=== PATIENT | female | born 1965 | race Caucasian/White ===

== ENCOUNTER 2018-05-09 05:49 | Day surgery (SDC) | payer OTHER ==
[2018-05-09] MEDS ORDERED: LACTATED RINGERS 1,000 ML IV ONE ×2 (06:59→10:44)
[2018-05-09] MEDS ORDERED: SCOPOLAMINE HYDROBROMIDE 1.5MG/72HR PATCH TD ONE ×2 (06:59→08:48)
[2018-05-09] MEDS ORDERED: PREGNANCY TEST KIT 1 EACH KIT MC ONE (06:59)
[2018-05-09] MEDS ORDERED: ENOXAPARIN SODIUM 40 MG/0.4 ML DISP.SYRIN SQ ONE ×2 (07:02→08:48)
[2018-05-09] MEDS ORDERED: FAMOTIDINE 20 MG/2 ML VIAL ONE ×2 (07:03→08:48)
[2018-05-09] MEDS ORDERED: LEVALBUTEROL HCL 1.25 MG/3 ML AMPUL.NEB NEB ONE ×2 (08:26→08:48)
[2018-05-09] MEDS ORDERED: PHENYLEPHRINE HCL 10 MG/1 ML ONE (08:48)
[2018-05-09] MEDS ORDERED: SODIUM CHLORIDE IRRIG SOLUTION 3,000 ML IRRIG.SOLN IR ONE (08:48)
[2018-05-09] MEDS ORDERED: SEVOFLURANE 250 ML LIQUID IH ONE (08:48)
[2018-05-09] MEDS ORDERED: ROCURONIUM BROMIDE 10 MG/ML 5ML VIAL ONE (08:48)
[2018-05-09] MEDS ORDERED: ceFAZolin SODIUM 1 GM VIAL ONE (08:48)
[2018-05-09] MEDS ORDERED: LACTATED RINGERS 1,000 ML IV.SOLN IV ONE (08:48)
[2018-05-09] MEDS ORDERED: LIDOCAINE HCL 2% PF 100MG/5ML VIAL IJ ONE (08:48)
[2018-05-09] MEDS ORDERED: MIDAZOLAM HCL 2 MG/2 ML VIAL ONE (08:48)
[2018-05-09] MEDS ORDERED: SUGAMMADEX SODIUM 200 MG/2 ML VIAL IV ONE (08:48)
[2018-05-09] MEDS ORDERED: BUPIV. HCL 0.25% (2.5MG/ML)/EPI. (1:200,000) PF 30 ML VIAL IJ ONE (08:48)
[2018-05-09] MEDS ORDERED: ONDANSETRON HCL/PF 4 MG/ 2ML VIAL ONE (08:48)
[2018-05-09] MEDS ORDERED: LIDOCAINE HCL 1% PF 300MG/30ML VIAL ONE (08:48)
[2018-05-09] MEDS ORDERED: HYDROmorphone HCL/PF 2 MG/ML VIAL ONE ×2 (08:48→12:02)
[2018-05-09] MEDS ORDERED: BUPIVACAINE HCL 0.25% (2.5MG/ML) PF 30 ML VIAL IJ ONE (08:48)
[2018-05-09] MEDS ORDERED: FENTANYL CITRATE/PF 250 MCG/5 ML INJ. ONE (08:48)
[2018-05-09] MEDS ORDERED: PROPOFOL 200 MG/20 ML VIAL IV ONE (08:48)
[2018-05-09] MEDS ORDERED: DEXAMETHASONE SOD PHOS 4 MG/ML VIAL ONE (08:48)
[2018-05-10 09:03] VITALS: BP 123/77
== END 2018-05-09 12:13 | disposition other institution (70) ==
LOC: OPSURG 05:49
PROVIDERS: ATTEND Surgery
DX: E66.01 Morbid (severe) obesity due to excess calories (principal); Z68.39 Body mass index [BMI] 39.0-39.9, adult; E11.9 Type 2 diabetes mellitus without complications; E78.5 Hyperlipidemia, unspecified
CPT/HCPCS: 43235; 43775; A9270; J0690; J1100; J1170; J1650; J2001; J2250; J2370; J2405; J2704; J7120; J7614; S0028; 81025; J2307

== ENCOUNTER 2018-05-09 12:15 | Inpatient (IN) | payer OTHER ==
[2018-05-09] MEDS ORDERED: oxyCODONE HCL 5 MG TABLET PO PRN (12:33)
[2018-05-09] MEDS ORDERED: MORPHINE SULFATE 4 MG/ML VIAL IVP PRN (12:33)
[2018-05-09] MEDS ORDERED: LEVALBUTEROL HCL 1.25 MG/3 ML AMPUL.NEB NEB PRN (12:33)
[2018-05-09] MEDS ORDERED: PROMETHAZINE HCL 25 MG in 0.9 % SODIUM CHLORIDE 50 ML IV PRN (12:33)
[2018-05-09] MEDS ORDERED: ONDANSETRON HCL/PF 4 MG/ 2ML VIAL IVP PRN (12:33)
[2018-05-09] MEDS ORDERED: Non-Formulary 1 EACH (Gabapentin [Neurontin] 600 MG) PO SCH (13:00)
[2018-05-09] MEDS: 0.9 % SODIUM CHLORIDE 1,000 ML IV SCH ×2 (14:01→19:58)
--- NOTE | 2018-05-09 14:09 | History and Physical Report ---
History of Present Illnes - History of Present Illness Reason for Visit: S/P Gastric Sleeve History of Present Illness: Patient is a 53-year-old white female who has tried multiple diets and exercise programs with no success. Patient states that she has always been overweight and has struggled since she started having children. Patient and surgeon decided to proceed with gastric sleeve procedure. Procedure went well without complications- patient will be admitted and monitored s/p surgical intervention. Patient has already been up walking- she is really wanting to go home tomorrow due to weather suppose to be bad. Education provided on what was required to go home (toleration of oral meds, walking, incentive spirometer, pain control, bowel sounds- passing gas/belching. She voiced understanding. - Past Medical History Cardiac: HTN, Hyperlipidemia Pulmonary: COPD INFORMATION SYSTEMS SPECIALIST: Migraine Psych: Anxiety, Depression Musculoskeletal: Chronic low back pain, Osteoarthritis Endocrine: Diabetes, obesity Grav: 8 Para: 4 Ab: 4 - Past Surgical History Past Surgical History: Hysterectomy, Other (L5S1 fusion) - Past Family History Mother Family History: DM, Hyperlipidemia, Hypertension Father Family History: CAD, DM, Hyperlipidemia, Hypertension - Past Social History Smoke: Quit (smoked 30 years- quit July 2017) Alcohol: None Drugs: None Lives: With Family Domestic Violence: Negative - Health Maintenance Health Maintenance: Influenza Vaccine, Pneumococcal Vaccine Influenza Vaccine: Current for this Influenza Season Pneumonia Vaccine: Yes Resuscitation Status: Resusciation Status Resuscitation Status Full Code - Unable to Obtain History Unable to Obtain: No Review of Systems - Review of Systems Constitutional: negative: Fever, Chills Eyes: negative: pain, vision change ENT: negative: Ear Pain, Nose Pain, Throat Pain Respiratory: negative: Cough, Shortness of Breath Cardiovascular: negative: Chest Pain, Light Headedness Gastrointestinal: Nausea, Abdominal Pain (minimal). negative: Vomiting Genitourinary: negative: Dysuria Musculoskeletal: negative: Back Pain Skin: Deferred Neurological: negative: Weakness, Confusion - Medications/Allergies Allergies/Adverse Reactions: Allergies Allergy/AdvReac Type Severity Reaction Status Date / Time oxycodone [From Percocet] Allergy Unknown Verified 05/09/18 12:45 Home Medications: Home Medications Atorvastatin Calcium 40 mg PO DAILY 05/09/18 Gabapentin [Neurontin] 600 mg PO TID 05/09/18 Lisinopril [Prinivil] 12.5 mg PO QD 05/09/18 Metformin HCl 1,000 mg PO BID 05/09/18 Metoprolol Tartrate [Lopressor] 50 mg PO BID 05/09/18 Naproxen 500 mg PO BID 05/09/18 Nortriptyline HCl 25 mg PO HS 05/09/18 Paroxetine HCl [Paxil] 40 mg PO DAILY 05/09/18 Current Inpatient Medications: Current Inpatient Medications Cefazolin Sodium/Dextrose (Cefazolin 1 G/50 Ml-Dextrose) 1 gm IV Q8H [facility] Stop: 05/10/18 01:31 Enoxaparin Sodium (Lovenox) 40 mg SQ QD [facility] Stop: 05/24/18 12:59 Famotidine (Pepcid) 20 mg IVP BID [facility] Stop: 05/13/18 20:59 Promethazine HCl 25 mg/ Sodium (Chloride) 51 mls @ 600 mls/hr IV Q6 PRN PRN Reason: Nausea / Vomiting Stop: 05/13/18 12:32 Sodium Chloride (Normal Saline) 1,000 mls @ 150 mls/hr IV Q8H [facility] Last Admin: 05/09/18 14:01 Dose: 150 mls/hr Ketorolac Tromethamine (Toradol) 30 mg IVP Q6 PRN PRN Reason: For Mild Pain Stop: 05/13/18 12:32 Levalbuterol HCl (Xopenex) 1.25 mg NEB Q4 PRN PRN Reason: SOA, Dyspnea, or Wheezing Stop: 05/13/18 12:32 Miscellaneous (Chem Sticks) 1 each CHEMQID [facility] Miscellaneous (Gabapentin [Neurontin]) 600 mg PO TID [facility] Last Admin: 05/09/18 13:01 Dose: Not Given Morphine Sulfate () 2 mg IVP Q6 PRN PRN Reason: Mod. Pain- Only if unable PO Nortriptyline HCl (Nortriptyline Hcl) 25 mg PO [facility] Ondansetron HCl (Zofran 4 Mg/2 Ml) 4 mg IVP Q6H PRN PRN Reason: Nausea / Vomiting Stop: 05/13/18 12:32 Oxycodone HCl (Percolone) 5 mg PO Q6 PRN PRN Reason: Mod. Pain-Crush Meds Exam - Exam Vital Signs: Vital Signs (72 hours) 05/09/18 05/09/18 12:24 13:06 Temperature 97.9 F 97.9 F Pulse Rate [ 87 89 Left] Respiratory 18 18 Rate Blood Pressure 109/64 104/55 [Left Arm] O2 Sat by Pulse 95 92 Oximetry General: Alert, Oriented to Person, Oriented to Place, Oriented to Time, Cooperative, Mild distress, Morbidly Obese HEENT: Atraumatic, PERRLA, Mouth Mucous membr. moist/[place], Nose Mucous membr. moist/[place] Neck: Normal Range of Motion Carotids: no bruit Lungs: Clear to auscultation, Normal air movement, Speaks full Sentences Cardiovascular: Regular rate, Normal S1, Normal S2 Peripheral Pulses: 2+ peripheral pulses Abdomen: Soft, Decreased Bowel Sounds Integumentary: Normal, [place], Warm, Dry, Other (5 incision drsgs dry and intact) Extremities: No edema, Normal pulses, No tenderness/swelling Neurological: Normal gait, Normal speech, Strength Equal Bilat, Sensation intact Psych/Mental Status: Mental status NL, Mood NL, Appropriate Affect, Intact Judgment (pt wanting to go home tomorrow) Assessment/Plan - Assessment/Plan (1) S/P gastric surgery Status: Acute Current Visit: Yes Assessment: Incisions are without redness/erythema, legs are without tenderness/pain, LCTA, pt is still drowsy from anesthesia Plan: Will monitor incision sites, patient will be placed on Lovenox daily, frequent ambulation and SCDs while in bed, patient will use incentive spirometer to prevent resp. infections, will start PPI, and will give IVFs until patient can tolerate PO, will monitor neuro status (2) Morbid obesity due to excess calories Status: Acute Current Visit: Yes Assessment: S/P Gastric Sleeve (3) Type 2 diabetes mellitus Status: Acute Current Visit: Yes Qualifiers: Diabetes mellitus nursing home insulin use: without nursing home use Diabetes mellitus complication status: with hyperglycemia Qualified Code(s): E11.65 - Type 2 diabetes mellitus with hyperglycemia Assessment: Last A1C on 05/01/18 was 7.6 Plan: Will hold metformin and monitor blood sugars (4) Anxiety and depression Status: Acute Current Visit: Yes Assessment: Stable on home meds Plan: Will administer Nortriptyline (5) Osteoarthritis Status: Acute Current Visit: Yes Qualifiers: Osteoarthritis location: multiple joints Assessment: Stable on home meds Plan: Will continue on Gabapentin VTE Assessment - RISK FACTOR SCORE VTE RISK FACTOR SCORES: AGE 40-60 YEARS, OBESITY, MAJOR SURGERY/ANESTHESIA TIME > 1 HOUR (Will give Lovenox, frequent ambulation, SCDs while in bed)
[2018-05-09 14:39] VITALS: BMI 39.7
[2018-05-09] MEDS: KETOROLAC TROMETHAMINE 30 MG/1ML VIAL IVP PRN ×2 (16:24→21:45)
[2018-05-09] MEDS ORDERED: CEFAZOLIN SODIUM/DEXTROSE,ISO 1 GM/50 ML PIGGYBACK IV ONE ×2 (17:41→20:12)
[2018-05-09] MEDS: CEFAZOLIN SODIUM/DEXTROSE,ISO 1 GM/50 ML PIGGYBACK IV SCH (17:44)
[2018-05-09] MEDS: GABAPENTIN 300 MG CAPSULE PO SCH (17:45)
[2018-05-09] MEDS: HYDROcodone /APAP 5/325 1 EACH TABLET PO PRN (20:57)
[2018-05-09] MEDS ORDERED: NORTRIPTYLINE HCL 25 MG CAPSULE PO SCH (21:00)
[2018-05-09] MEDS: FAMOTIDINE 20 MG/2 ML VIAL IVP SCH (21:25)
[2018-05-10] MEDS: CEFAZOLIN SODIUM/DEXTROSE,ISO 1 GM/50 ML PIGGYBACK IV SCH (00:55)
[2018-05-10] MEDS: HYDROcodone /APAP 5/325 1 EACH TABLET PO PRN (01:09)
[2018-05-10] MEDS: 0.9 % SODIUM CHLORIDE 1,000 ML IV SCH (02:15)
--- NOTE | 2018-05-10 06:52 | Discharge Summary ---
Discharge Summary - Discharge Sumary History of Present Illness: Patient is a 53-year-old white female who has tried multiple diets and exercise programs with no success. Patient states that she has always been overweight and has struggled since she started having children. Patient and surgeon decided to proceed with gastric sleeve procedure. Procedure went well without complications- patient will be admitted and monitored s/p surgical intervention. Patient has already been up walking- she is really wanting to go home tomorrow due to weather suppose to be bad. Education provided on what was required to go home (toleration of oral meds, walking, incentive spirometer, pain control, bowel sounds- passing gas/belching. She voiced understanding. Condition at Discharge: Stable Home Medications: Ambulatory Orders Medication Instructions Recorded Atorvastatin Calcium 40 mg PO DAILY 05/09/18 Gabapentin [Neurontin] 600 mg PO TID 05/09/18 Lisinopril [Prinivil] 12.5 mg PO QD 05/09/18 Metformin HCl 1,000 mg PO BID 05/09/18 Metoprolol Tartrate [Lopressor] 50 mg PO BID 05/09/18 Naproxen 500 mg PO BID 05/09/18 Nortriptyline HCl 25 mg PO HS 05/09/18 Paroxetine HCl [Paxil] 40 mg PO DAILY 05/09/18 Consultations this Visit: None Procedures this Visit: Other (S/P Gastric Sleeve) Allergies/Adverse Reactions: Allergies Allergy/AdvReac Type Severity Reaction Status Date / Time oxycodone [From Percocet] Allergy Unknown Verified 05/09/18 12:45 Patient Problems: Current Active Problems Problem Status Onset Anxiety and depression Acute Morbid obesity due to excess calories Acute Osteoarthritis Acute S/P gastric surgery Acute Type 2 diabetes mellitus Acute Discharge Summary: Patient is a 53-year-old white female that underwent the gastric sleeve procedure and has done very well. She has been very cooperative with her care by ambulating frequently, using her incentive spirometer, and wearing her SCDs while in bed. She has been compliant with her diet during hospitalization. She is having minimal discomfort at this time and minimal nausea- she has is passing gas and belching. She is aware of discharge instructions and what she can and cannot do post surgical- she is aware of the strict diet she must follow to decrease discomfort and have success after procedure. She has family support and significant other will be taking her home- medications written by surgeon given to patient. She appears very positive and excited about the future. She is ready to go home. Hospital Course: Patient has been cooperative with care and treatment. Minimal nausea and mild to moderate discomfort. She has received pain and nausea medication as directed - Final Diagnosis (1) S/P gastric surgery Problems: Incisions are without redness/erythema, legs are without tenderness/pain, LCTA, patient will use incentive spirometer to prevent resp. infections while at home, and frequent ambulation Right or Left: Right (2) Morbid obesity due to excess calories Problems: S/P gastric sleeve Right or Left: Right (3) Type 2 diabetes mellitus Problems: Last blood sugar was 134- diabetic meds were held- pt will keep log of blood sugars and take to follow up appointment Right or Left: Right (4) Anxiety and depression Problems: Stable on home meds Right or Left: Right (5) Osteoarthritis Problems: stable on home meds Right or Left: Right
[2018-05-10] MEDS ORDERED: FAMOTIDINE 20 MG/2 ML VIAL ONE (07:44)
[2018-05-10] MEDS: FAMOTIDINE 20 MG/2 ML VIAL IVP SCH (08:04)
[2018-05-10] MEDS: GABAPENTIN 300 MG CAPSULE PO SCH (08:15)
[2018-05-10 09:03] VITALS: BP 123/77
[2018-05-10] MEDS ORDERED: ONDANSETRON HCL 4 MG TAB.RAPDIS PO ONE (09:20)
[2018-05-10] MEDS ORDERED: ONDANSETRON HCL 4 MG TAB.RAPDIS ONE (09:24)
[2018-05-10] MEDS ORDERED: ENOXAPARIN SODIUM 40 MG/0.4 ML DISP.SYRIN SQ SCH (13:00)
== END 2018-05-10 09:30 | disposition home or self-care (01) | DRG 641 ==
LOC: SOUTH 12:15
PROVIDERS: ADMIT Nurse Practitioner Family; ATTEND Nurse Practitioner Family
DX: E66.01 Morbid (severe) obesity due to excess calories (principal); E11.65 Type 2 diabetes mellitus with hyperglycemia; F41.9 Anxiety disorder, unspecified; F32.9 Major depressive disorder, single episode, unspecified; M19.90 Unspecified osteoarthritis, unspecified site
CPT/HCPCS: 99222; 99238; J1885; A9270; A9270-GY; J7030